=== PATIENT | male | born 1930 | race Caucasian/White ===

== ENCOUNTER → 2016-10-09 | Outpatient (REF) ==
[~2016-10-09] MED LIST: BUSPAR10 MG PO; CENTRUM SILVER1 TAB PO; COZAAR 50MG50 MG/TAB PO; HCTZ12.5TAB PO; MIRALAX PA17 GM/Dose PO; NEURONTIN600 MG/TAB PO; PROTONIX 40MG T40 MG PO; ZOFRAN ODT4 MG PO
[2016-10-09 16:00] LABS: FERRITIN 84 ng/mL (18-464)
[2016-10-13 15:35] LABS: TOTAL IRON BINDING CAPACITY 299 ug/dL (261-462)
== END ==
LOC: ZLAB.WCH 15:08
PROVIDERS: Internal Medicine
DX: Z01.89 Encounter for other specified special examinations (principal)

== ENCOUNTER → 2017-03-04 | Outpatient (CLI) | payer MEDICARE, OTHER | LOC: COL.VAS 09:26 | DX: R25.2 Cramp and spasm (principal); I73.9 Peripheral vascular disease, unspecified ==

== ENCOUNTER → 2017-05-18 | Outpatient (REF) ==
[2017-05-18 19:10] LABS: PSA-TOTAL 4.02 ng/mL (0-4); THYROID STIMULATING HORMONE 1.16 uIU/mL (0.465-4.680)
== END ==
LOC: ZLAB.WCH 18:17
PROVIDERS: Internal Medicine
DX: Z01.89 Encounter for other specified special examinations (principal)
CPT/HCPCS: G0103

== ENCOUNTER → 2017-11-19 | Outpatient (REF) ==
[2017-11-19 19:12] LABS: THYROID STIMULATING HORMONE 0.936 uIU/mL (0.465-4.680)
== END ==
LOC: ZLAB.WCH 18:27
PROVIDERS: Internal Medicine
DX: Z01.89 Encounter for other specified special examinations (principal)

== ENCOUNTER → 2018-06-30 | Outpatient (REF) ==
[2018-06-30 20:29] LABS: THYROID STIMULATING HORMONE 1.23 uIU/mL (0.465-4.680)
[2018-06-30 21:03] LABS: PSA-TOTAL 4.28 ng/mL (0-4)
== END ==
LOC: ZLAB.WCH 19:44
PROVIDERS: Internal Medicine
DX: Z01.89 Encounter for other specified special examinations (principal)
CPT/HCPCS: G0103

== ENCOUNTER 2018-11-28 10:44 | Outpatient (CLI) | payer MEDICARE, OTHER ==
[2018-11-28] VITALS (9 sets, daily range): BP systolic 115–139; BP diastolic 70–83; PULSE 62–79; TEMP 98.1
[~2018-11-28] VITALS: Ht 177.8 cm; Wt 67.0 kg
[2018-11-28] MEDS ORDERED: PROTONIX 40MG T40 MG PO (11:35)
[2018-11-28] MEDS ORDERED: FLOMAX 0.40.4 MG/CAP PO (11:36)
[2018-11-28] MEDS ORDERED: BETAMETHASONE VALERATE TP (11:37)
[2018-11-28] MEDS ORDERED: FERROUS SU220 MG/5 M PO (11:37)
[2018-11-28] MEDS ORDERED: NIZORAL SHAMPO120 M1 TP (11:38)
--- NOTE | 2018-11-28 11:55 | NUR ---
SEE MERGE REPORTS FOR MEDICATION ADMINISTRATION TIMES AND INTRA/POST PROCEDURE SEDATION ASSESSMENTS.
--- NOTE | 2018-11-28 12:47 | NUR ---
Back from manager lab by bed. Drowsy but oriented. Denies pain and needs at this time. Two bandaids to mid lower back noted CD&I. VSS. Will continue to monitor
--- NOTE | 2018-11-28 14:53 | NUR ---
INT discontinued intact. Denies pain at this time. Ok with Dr. Nunn for pt to go home and "take it easy".
--- NOTE | 2018-11-28 15:17 | NUR ---
Discharge instructions given to pt/family. Transferred to private car by francis
== END 2018-11-28 15:18 | disposition home or self-care (01) ==
LOC: COL.CAR 10:44
DX: S32.010A Wedge compression fracture of first lumbar vertebra, initial encounter for closed fracture (principal); Z85.828 Personal history of other malignant neoplasm of skin; Z88.5 Allergy status to narcotic agent
CPT/HCPCS: J2250; J3010; J7120